=== PATIENT | female | born 1980 | race Two or more races ===

== ENCOUNTER 2019-07-16 11:18 | Emergency (ER) | payer OTHER ==
[~2019-07-16] VITALS: Ht 154.9 cm; Wt 84.8 kg
[~2019-07-16 11:18] MED LIST: NO HOME MEDS
[2019-07-16] MEDS ORDERED: KETOROLAC 30 MG/1 ML ONE (11:52)
[2019-07-16] MEDS ORDERED: KETOROLAC 30 MG/1 ML IVPush ONE (12:00)
[2019-07-16] MEDS ORDERED: SODIUM CHLORIDE 0.9% 1,000ML IVBOLUS ONE (12:00)
[2019-07-16 12:11] LABS: ALBUMIN 3.1 g/dL (3.4-5.0); ANION GAP 8 mmol/L (5-15); CALCIUM 8.4 mg/dL (8.5-10.1); CHLORIDE 109 mmol/L (98-107)
[2019-07-16 12:17] LABS: ALANINE AMINOTRANSFERASE 42 U/L (12-78); ALKALINE PHOSPHATASE 102 U/L (45-117); BILIRUBIN,TOTAL 0.3 mg/dL (0.2-1.0); CREATININE 0.63 mg/dL (0.55-1.02); TOTAL PROTEIN 7.7 g/dL (6.4-8.2)
[2019-07-16 12:20] LABS: BASOPHILS # (AUTO) 0.02 x10^3/uL (0-0.1); BASOPHILS % (AUTO) 0 % (0-1); EOSINOPHILS # (AUTO) 0.09 x10^3/uL (0-0.4); EOSINOPHILS % (AUTO) 1 % (1-7); LYMPHOCYTES # (AUTO) 0.86 x10^3/uL (1-3.4); LYMPHOCYTES % (AUTO) 8 % (22-44); MD SCAN; MEAN CORPUSCULAR HEMOGLOBIN 29.1 pg (27.0-34.8); MEAN CORPUSCULAR HGB CONC 33.1 g/dL (32.4-35.8); MEAN CORPUSCULAR VOLUME 88.1 fL (80-100); MEAN PLATELET VOLUME 8.4 fL (7.4-10.4); MONOCYTES # (AUTO) 0.58 x10^3/uL (0.2-0.8); MONOCYTES % (AUTO) 6 % (2-9); NEUTROPHILS # (AUTO) 8.98 x10^3/uL (1.8-6.8); NEUTROPHILS % (AUTO) 85 % (42-75); PLATELET COUNT 247 x10^3/uL (130-400); RED BLOOD COUNT 4.62 x10^6/uL (3.82-5.3); RED CELL DISTRIBUTION WIDTH 12.4 % (9.6-15.2)
[2019-07-16] MEDS ORDERED: AZITHROMYCIN 500 MG in SODIUM CHLORIDE 0.9% 250 ML IV ONE (12:30)
[2019-07-16] MEDS ORDERED: CEFTRIAXONE PMX 1GM/50ML 50 ML IV ONE (12:30)
[2019-07-16] MEDS ORDERED: CEFTRIAXONE PMX 1GM/50ML 50 ML ONE (12:37)
--- NOTE | 2019-07-16 12:45 | NUR ---
IV STARTED. PT PLACED ON VITALS MONITORS. ORDERED FLUIDS AND MEDS GIVEN. BLOOD CULTURES DRAWN, ORDERED ABX STARTED. WILL CONTINUE TO MONITOR.
[2019-07-16] MEDS ORDERED: ACETAMINOPHEN 500 MG TABLET ONE (13:15)
[2019-07-16] MEDS ORDERED: ACETAMINOPHEN 500 MG TABLET PO ONE (13:30)
[2019-07-16 14:37] LABS: MICROSCOPIC AUTO
[2019-07-16 14:41] LABS: CULTURE INDICATED? YES
[2019-07-16 15:34] VITALS: BP 109/59
== END 2019-07-16 15:36 | disposition home or self-care (01) ==
LOC: ED 11:45
DX: J15.9 Unspecified bacterial pneumonia (principal)
CPT/HCPCS: 36415; 71046; 80053; 81001; 83605; 84703; 85025; 87040; 87086; 96365; 96368; 96375; 99284; J0456; J0696; J1885; J7030; J7050

== ENCOUNTER 2019-07-19 08:58 | Inpatient (IN) | payer OTHER ==
[~2019-07-19] VITALS: Ht 152.4 cm; Wt 85.3 kg
[2019-07-19 10:15] LABS: BASOPHILS # (AUTO) 0.04 x10^3/uL (0-0.1); BASOPHILS % (AUTO) 1 % (0-1); EOSINOPHILS # (AUTO) 0.23 x10^3/uL (0-0.4); EOSINOPHILS % (AUTO) 3 % (1-7); LYMPHOCYTES # (AUTO) 1.27 x10^3/uL (1-3.4); LYMPHOCYTES % (AUTO) 14 % (22-44); MD NO; MEAN CORPUSCULAR HEMOGLOBIN 28.9 pg (27.0-34.8); MEAN CORPUSCULAR HGB CONC 32.7 g/dL (32.4-35.8); MEAN CORPUSCULAR VOLUME 88.2 fL (80-100); MEAN PLATELET VOLUME 7.9 fL (7.4-10.4); MONOCYTES # (AUTO) 0.73 x10^3/uL (0.2-0.8); MONOCYTES % (AUTO) 8 % (2-9); NEUTROPHILS # (AUTO) 7.08 x10^3/uL (1.8-6.8); NEUTROPHILS % (AUTO) 76 % (42-75); PLATELET COUNT 350 x10^3/uL (130-400); RED BLOOD COUNT 4.28 x10^6/uL (3.82-5.3); RED CELL DISTRIBUTION WIDTH 12.6 % (9.6-15.2)
[2019-07-19 10:26] LABS: ALBUMIN 2.8 g/dL (3.4-5.0); ANION GAP 6 mmol/L (5-15); CALCIUM 8.4 mg/dL (8.5-10.1); CHLORIDE 105 mmol/L (98-107); CREATININE 0.57 mg/dL (0.55-1.02)
[2019-07-19] MEDS ORDERED: SODIUM CHLORIDE FLUSH 10ML SYR IVF ONE (11:00)
--- NOTE | 2019-07-19 11:26 | NUR ---
PT TO CT AT THIS TIME
[2019-07-19] MEDS ORDERED: OMNIPAQUE 350 MG/ML, 100ML BOTTLE ONE (11:47)
[2019-07-19] MEDS ORDERED: LEVO25TA4 PO (12:52)
[2019-07-19] MEDS ORDERED: POTASSIUM CHLORIDE 20 MEQ TAB.ER.PRT PO ONE (14:00)
[2019-07-19] MEDS ORDERED: LEVOFLOXACIN/PMX 750MG/150ML 150 ML IV SCH (14:00)
[2019-07-19] MEDS ORDERED: GUAIFENESIN/COD200MG-20MG/10ML LIQUID PO PRN (14:00)
[2019-07-19] MEDS ORDERED: LEVOFLOXACIN/PMX 750MG/150ML 150 ML ONE (14:13)
[2019-07-19] MEDS ORDERED: ENOXAPARIN 40 MG/0.4 ML ONE (14:13)
[2019-07-19] MEDS ORDERED: POTASSIUM CHLORIDE 20 MEQ TAB.ER.PRT ONE (14:13)
[2019-07-19] MEDS: ENOXAPARIN 40 MG/0.4 ML SQ SCH (14:51)
--- NOTE | 2019-07-19 14:58 | NUR ---
[facility] RPT REC'D FROM [facility] AND PT CARE ASSUMED. PT MED NOTED. HUMPHREYS AND STEVEN.
[2019-07-19 15:55] VITALS: BP 116/76
[2019-07-19] MEDS ORDERED: VANCOMYCIN PER PHARMACY MC PRN (18:00)
[2019-07-19] MEDS ORDERED: PHARMACOKINETIC MONITORING MC PRN (18:30)
[2019-07-19] MEDS: VANCOMYCIN 1,600 MG in SODIUM CHLORIDE 0.9% 250 ML IV SCH (18:35)
[2019-07-19 19:05] VITALS: BP 115/82
[2019-07-19] MEDS: OSELTAMIVIR 75 MG CAPSULE PO SCH (20:25)
[2019-07-20 00:33] VITALS: BP 105/62
[2019-07-20] MEDS: VANCOMYCIN 1,600 MG in SODIUM CHLORIDE 0.9% 250 ML IV SCH (06:01)
[2019-07-20 06:24] LABS: BASOPHILS # (AUTO) 0.04 x10^3/uL (0-0.1); BASOPHILS % (AUTO) 1 % (0-1); EOSINOPHILS # (AUTO) 0.18 x10^3/uL (0-0.4); EOSINOPHILS % (AUTO) 2 % (1-7); LYMPHOCYTES # (AUTO) 1.29 x10^3/uL (1-3.4); LYMPHOCYTES % (AUTO) 16 % (22-44); MD NO; MEAN CORPUSCULAR VOLUME 87.7 fL (80-100); MEAN PLATELET VOLUME 7.7 fL (7.4-10.4); MONOCYTES # (AUTO) 0.79 x10^3/uL (0.2-0.8); MONOCYTES % (AUTO) 10 % (2-9); NEUTROPHILS # (AUTO) 5.98 x10^3/uL (1.8-6.8); NEUTROPHILS % (AUTO) 72 % (42-75); PLATELET COUNT 364 x10^3/uL (130-400); RED BLOOD COUNT 4.13 x10^6/uL (3.82-5.3); RED CELL DISTRIBUTION WIDTH 12.8 % (9.6-15.2)
[2019-07-20 06:35] LABS: ALBUMIN 2.8 g/dL (3.4-5.0); ANION GAP 7 mmol/L (5-15); CALCIUM 8.9 mg/dL (8.5-10.1); CHLORIDE 108 mmol/L (98-107)
[2019-07-20 06:41] LABS: ALANINE AMINOTRANSFERASE 33 U/L (12-78); ALKALINE PHOSPHATASE 88 U/L (45-117); BILIRUBIN,TOTAL 0.5 mg/dL (0.2-1.0); CREATININE 0.62 mg/dL (0.55-1.02); TOTAL PROTEIN 7.6 g/dL (6.4-8.2)
[2019-07-20 06:50] VITALS: BP 103/73
[2019-07-20] MEDS: LEVOTHYROXINE 25 MCG TABLET PO SCH (09:51)
[2019-07-20] MEDS: OSELTAMIVIR 75 MG CAPSULE PO SCH ×2 (09:51→20:03)
[2019-07-20] MEDS: CEFTRIAXONE PMX 1GM/50ML 50 ML IV SCH ×2 (09:51→10:27)
[2019-07-20] MEDS: DOXYCYCLINE 100 MG in DEXTROSE 5% 250 ML IV SCH ×3 (09:52→20:01)
[2019-07-20] MEDS: GUAIFENESIN 200 MG TABLET PO SCH ×4 (09:54→20:03)
[2019-07-20 13:25] VITALS: BP 107/75
[2019-07-20] MEDS: ENOXAPARIN 40 MG/0.4 ML SQ SCH (14:43)
[2019-07-20 18:33] VITALS: BP 108/74
[2019-07-21 01:11] VITALS: BP 111/77
[2019-07-21] MEDS: GUAIFENESIN/DM 200-20MG, 10ML UDC PO PRN ×3 (02:00→14:48)
[2019-07-21] MEDS: GUAIFENESIN 200 MG TABLET PO SCH ×4 (05:29→20:40)
[2019-07-21 06:47] VITALS: BP 117/81
[2019-07-21] MEDS: OSELTAMIVIR 75 MG CAPSULE PO SCH ×2 (08:15→20:40)
[2019-07-21] MEDS: LEVOTHYROXINE 25 MCG TABLET PO SCH (08:15)
[2019-07-21] MEDS: DOXYCYCLINE 100 MG in DEXTROSE 5% 250 ML IV SCH ×2 (08:15→22:49)
[2019-07-21] MEDS: CEFTRIAXONE PMX 1GM/50ML 50 ML IV SCH ×2 (11:00→12:38)
[2019-07-21 13:46] VITALS: BP 113/80
[2019-07-21] MEDS: ENOXAPARIN 40 MG/0.4 ML SQ SCH (14:37)
[2019-07-21 18:39] VITALS: BP 101/73
[2019-07-22 01:09] VITALS: BP 108/75
[2019-07-22] MEDS: GUAIFENESIN 200 MG TABLET PO SCH ×2 (06:03→09:30)
[2019-07-22] MEDS ORDERED: AMOXICILLIN/CLAV 875-125MG TABLET PO SCH (09:00)
[2019-07-22] MEDS ORDERED: DOXYCYCLINE 100MG TABLET PO SCH (09:00)
[2019-07-22 09:20] VITALS: BP 108/78
[2019-07-22] MEDS: GUAIFENESIN/DM 200-20MG, 10ML UDC PO PRN (09:29)
[2019-07-22] MEDS: LEVOTHYROXINE 25 MCG TABLET PO SCH (09:30)
[2019-07-22] MEDS: OSELTAMIVIR 75 MG CAPSULE PO SCH (09:30)
[2019-07-22] MEDS ORDERED: AMOX1TAB12 PO (10:05)
[2019-07-22] MEDS ORDERED: DOXY100T PO (10:05)
[2019-07-22] MEDS ORDERED: OSEL75CA14 PO (10:05)
[2019-07-22] MEDS ORDERED: GUAI200T37 PO (10:05)
== END 2019-07-22 15:21 | disposition home or self-care (01) | DRG 195 ==
LOC: ED 10:12 → EDIP 12:24 → 3N 16:00
PROVIDERS: ADMIT Internal Medicine; ATTEND Internal Medicine
DX: J18.1 Lobar pneumonia, unspecified organism (principal); E03.9 Hypothyroidism, unspecified; E87.6 Hypokalemia
CPT/HCPCS: 36415; 70490; 71045; 71275; 80048; 80053; 82040; 84443; 85025; 85379; 87040; 87070; 87205; 96374; G0378; J0696; J1650; J1956; J3370; J7060; Q9967; J7050

== ENCOUNTER → 2021-01-18 | Outpatient (CLI) | payer OTHER ==
[~2021-01-18] MED LIST changes: +AMOX1TAB12 PO; +DOXY100T PO; +GUAI200T37 PO; +LEVO137T3 PO; +LEVO25TA4 PO; +OSEL75CA14 PO
[2021-01-18 16:15] LABS: BASOPHILS % (AUTO) 1 % (0-1); EOSINOPHILS % (AUTO) 3 % (1-7); LYMPHOCYTES % (AUTO) 37 % (22-44); MEAN CORPUSCULAR HEMOGLOBIN 27.7 pg (27.0-34.8); MEAN CORPUSCULAR HGB CONC 33.4 g/dL (32.4-35.8); MEAN PLATELET VOLUME 7.7 fL (7.4-10.4); MONOCYTES % (AUTO) 10 % (2-9); NEUTROPHILS % (AUTO) 49 % (42-75); PLATELET COUNT 304 x10^3/uL (130-400); RED BLOOD COUNT 3.77 x10^6/uL (3.82-5.3); RED CELL DISTRIBUTION WIDTH 14.8 % (9.6-15.2)
[2021-01-18 16:27] LABS: ALANINE AMINOTRANSFERASE 23 U/L (12-78); ALBUMIN 3.5 g/dL (3.4-5.0); ANION GAP 5 mmol/L (5-15); CALCIUM 8.4 mg/dL (8.5-10.1); CHLORIDE 112 mmol/L (98-107); CREATININE 0.65 mg/dL (0.55-1.02)
[2021-01-18 16:32] LABS: ALKALINE PHOSPHATASE 76 U/L (45-117); BILIRUBIN,TOTAL 0.2 mg/dL (0.2-1.0); TOTAL PROTEIN 7.2 g/dL (6.4-8.2)
== END | disposition home or self-care (01) ==
LOC: STAR 15:23
PROVIDERS: ATTEND Obstetrics & Gynecology
DX: Z01.818 Encounter for other preprocedural examination (principal); N92.1 Excessive and frequent menstruation with irregular cycle; N93.9 Abnormal uterine and vaginal bleeding, unspecified; R93.89 Abnormal findings on diagnostic imaging of other specified body structures; N85.00 Endometrial hyperplasia, unspecified; I51.7 Cardiomegaly; R94.31 Abnormal electrocardiogram [ECG] [EKG]
CPT/HCPCS: 36415; 80053; 84703; 85025; 93005

== ENCOUNTER 2021-01-24 15:00 | Inpatient (IN) | payer OTHER ==
[~2021-01-24] VITALS: Ht 152.4 cm; Wt 96.5 kg
[2021-01-24 13:59] LABS: HCG UR SG 1.022 (1.003-1.030)
[~2021-01-24 15:00] MED LIST changes: +ACETAMINOPHEN 325 MG TABLET PO PRN; +CHLORHEXIDINE 15 ML UDC ONE; +CHLORHEXIDINE 15 ML UDC PO ONE; +DEXAMETHASONE 4 MG/ML, 1ML ONE; +EPHEDRINE 50 MG/ML, 1ML IVPush PRN; +FENTANYL PF 250 MCG/5ML ONE; +HYDROmorphone 1 MG/ML, 1ML INJ IVPush PRN; +LABETALOL 5MG/ML, 20ML IV PRN; +LACTATED RINGERS 1,000 ML IV SCH; +LIDOCAINE-MPF 2% ,5ML ONE; +MEPERIDINE/PF 25MG/0.5ML IVPush PRN; +MIDAZOLAM 1 MG/ML, 2ML ONE; +ONDANSETRON 2MG/ML, 2ML IVPush PRN; +OXYcodone 5 MG/5 ML ORAL.SOL UDC PO PRN; +PROMETHAZINE 25 MG/ML, 1ML IVPush PRN; +SODIUM CHLORIDE 0.9% PF 10ML ONE; +hydrALAzine 20 MG/ML, 1ML IV PRN
[2021-01-24] MEDS ORDERED: FLUORESCEIN SODIUM 500 MG/5 ML ONE (16:27)
[2021-01-24] MEDS ORDERED: ONDANSETRON 2MG/ML, 2ML ONE (17:09)
[2021-01-24] MEDS ORDERED: GLYCOPYRROLATE 0.2MG/1ML, 5ML ONE (17:09)
[2021-01-24] MEDS ORDERED: PROPOFOL 10 MG/ML, 20ML ONE (17:09)
[2021-01-24] MEDS ORDERED: NEOSTIGMINE 1 MG/ML, 10ML ONE (17:09)
[2021-01-24] MEDS ORDERED: DEXAMETHASONE 4 MG/ML, 1ML ONE (17:09)
[2021-01-24] MEDS ORDERED: SUCCINYLCHOLINE 20 MG/ML, 10ML ONE (17:09)
[2021-01-24] MEDS ORDERED: ROCURONIUM 10MG/ML,5ML ONE (17:09)
[2021-01-24] MEDS ORDERED: CEFAZOLIN 1,000 MG ONE (17:09)
[2021-01-24] MEDS ORDERED: KETOROLAC 30 MG/1 ML ONE ×2 (17:10)
[2021-01-24] MEDS ORDERED: PROPOFOL 50 ML ONE ×2 (17:40→18:36)
[2021-01-24] MEDS ORDERED: OXYcodone 5 MG/5 ML ORAL.SOL UDC ONE (19:36)
[2021-01-24] MEDS ORDERED: FENTANYL PF 100 MCG/2ML ONE (19:36)
[2021-01-24] MEDS: FENTANYL PF 100 MCG/2ML IV PRN ×2 (19:49→19:55)
[2021-01-24] MEDS ORDERED: KETOROLAC 30 MG/1 ML IV PRN (21:00)
[2021-01-24] MEDS ORDERED: ONDANSETRON 2MG/ML, 2ML IV PRN (21:00)
[2021-01-24] MEDS ORDERED: MEPERIDINE/PF 100 MG/ML IM PRN (21:00)
[2021-01-24] MEDS ORDERED: SENNA/DOCUSATE TABLET PO SCH (21:00)
[2021-01-24] MEDS ORDERED: ACETAMINOPHEN 650 MG SUPP PR PRN ×2 (21:00)
[2021-01-24] MEDS ORDERED: ACETAMINOPHEN 325 MG TABLET PO PRN ×2 (21:00)
[2021-01-24] MEDS ORDERED: ZOLPIDEM 5MG TABLET PO PRN (21:00)
[2021-01-24] MEDS: morphine SULFATE 10 MG/ML, 1ML IV PRN ×4 (21:39→22:52)
[2021-01-24] MEDS: IBUPROFEN 600 MG TABLET PO SCH (21:40)
[2021-01-24] MEDS: SIMETHICONE 80 MG CHEW TAB PO SCH (21:41)
[2021-01-25] VITALS (7 sets, daily range): BP systolic 88–151; BP diastolic 51–74
[2021-01-25] MEDS: OXYcodone/APAP 5/325MG TABLET PO PRN ×2 (02:01→05:31)
[2021-01-25] MEDS: D5%-LACTATED RINGERS 1,000 ML IV SCH ×3 (03:20→19:00)
[2021-01-25 03:42] LABS: BASOPHILS % (AUTO) 0 % (0-1); EOSINOPHILS % (AUTO) 0 % (1-7); LYMPHOCYTES % (AUTO) 8 % (22-44); MEAN CORPUSCULAR HEMOGLOBIN 26.6 pg (27.0-34.8); MEAN CORPUSCULAR HGB CONC 32.8 g/dL (32.4-35.8); MEAN PLATELET VOLUME 8.5 fL (7.4-10.4); MONOCYTES % (AUTO) 2 % (2-9); NEUTROPHILS % (AUTO) 89 % (42-75); PLATELET COUNT 284 x10^3/uL (130-400); RED BLOOD COUNT 3.67 x10^6/uL (3.82-5.3); RED CELL DISTRIBUTION WIDTH 15.7 % (9.6-15.2)
[2021-01-25 03:54] LABS: ANION GAP 6 mmol/L (5-15); CALCIUM 8.5 mg/dL (8.5-10.1); CHLORIDE 109 mmol/L (98-107); CREATININE 0.58 mg/dL (0.55-1.02)
[2021-01-25] MEDS: LEVOTHYROXINE 137 MCG TABLET PO SCH (05:31)
[2021-01-25] MEDS: IBUPROFEN 600 MG TABLET PO SCH ×4 (05:31→23:46)
[2021-01-25] MEDS: SIMETHICONE 80 MG CHEW TAB PO SCH ×3 (11:07→23:46)
[2021-01-25 21:22] LABS: BASOPHILS % (AUTO) 1 % (0-1); EOSINOPHILS % (AUTO) 6 % (1-7); LYMPHOCYTES % (AUTO) 18 % (22-44); MEAN CORPUSCULAR HEMOGLOBIN 26.8 pg (27.0-34.8); MEAN CORPUSCULAR HGB CONC 33.1 g/dL (32.4-35.8); MEAN PLATELET VOLUME 8.9 fL (7.4-10.4); MONOCYTES % (AUTO) 8 % (2-9); NEUTROPHILS % (AUTO) 68 % (42-75); PLATELET COUNT 87 x10^3/uL (130-400); RED BLOOD COUNT 3.22 x10^6/uL (3.82-5.3); RED CELL DISTRIBUTION WIDTH 15.9 % (9.6-15.2)
[2021-01-26 01:55] VITALS: BP 89/63
[2021-01-26] MEDS: D5%-LACTATED RINGERS 1,000 ML IV SCH ×2 (03:00→10:42)
[2021-01-26] MEDS: LEVOTHYROXINE 137 MCG TABLET PO SCH (07:26)
[2021-01-26] MEDS: IBUPROFEN 600 MG TABLET PO SCH ×2 (07:26→11:32)
[2021-01-26 09:07] VITALS: BP 99/67
[2021-01-26] MEDS: SIMETHICONE 80 MG CHEW TAB PO SCH (09:50)
[2021-01-26 10:40] LABS: BASOPHILS % (AUTO) 1 % (0-1); EOSINOPHILS % (AUTO) 1 % (1-7); LYMPHOCYTES % (AUTO) 25 % (22-44); MEAN CORPUSCULAR HEMOGLOBIN 26.8 pg (27.0-34.8); MEAN CORPUSCULAR HGB CONC 32.7 g/dL (32.4-35.8); MEAN PLATELET VOLUME 7.9 fL (7.4-10.4); MONOCYTES % (AUTO) 9 % (2-9); NEUTROPHILS % (AUTO) 65 % (42-75); PLATELET COUNT 265 x10^3/uL (130-400); RED BLOOD COUNT 3.42 x10^6/uL (3.82-5.3); RED CELL DISTRIBUTION WIDTH 16.2 % (9.6-15.2)
[2021-01-26] MEDS ORDERED: DOCU-131 PO (10:55)
[2021-01-26] MEDS ORDERED: OXYC1TAB14 PO (10:55)
[2021-01-26 11:40] VITALS: BP 91/61
== END 2021-01-26 12:40 | disposition home or self-care (01) | DRG 743 ==
LOC: 4NE 20:36
PROVIDERS: ADMIT Obstetrics & Gynecology; ATTEND Obstetrics & Gynecology
PROC: 0UT70ZZ Resection of Bilateral Fallopian Tubes, Open Approach (ICD-10-PCS; 2021-01-24)
PROC: 0UT90ZZ Resection of Uterus, Open Approach (ICD-10-PCS; principal; 2021-01-24 15:00)
DX: N92.1 Excessive and frequent menstruation with irregular cycle (principal); N93.9 Abnormal uterine and vaginal bleeding, unspecified; N85.00 Endometrial hyperplasia, unspecified; N85.01 Benign endometrial hyperplasia; N85.4 Malposition of uterus; N92.0 Excessive and frequent menstruation with regular cycle
CPT/HCPCS: 36415; J3490; J7121; 80048; 81025; 85025; 86850; 86900; 88307; G0378; J0690; J1100; J1885; J2250; J2405; J2704; J2710; J3010; J0330; J2175; J2270; J7120

== ENCOUNTER 2021-03-06 09:34 | Outpatient (CLI) | payer OTHER ==
[~2021-03-06 09:34] MED LIST changes: -ACETAMINOPHEN 325 MG TABLET PO PRN; -CHLORHEXIDINE 15 ML UDC ONE; -CHLORHEXIDINE 15 ML UDC PO ONE; -DEXAMETHASONE 4 MG/ML, 1ML ONE; +DOCU-131 PO; -EPHEDRINE 50 MG/ML, 1ML IVPush PRN; -FENTANYL PF 250 MCG/5ML ONE; -HYDROmorphone 1 MG/ML, 1ML INJ IVPush PRN; -LABETALOL 5MG/ML, 20ML IV PRN; -LACTATED RINGERS 1,000 ML IV SCH; -LIDOCAINE-MPF 2% ,5ML ONE; -MEPERIDINE/PF 25MG/0.5ML IVPush PRN; -MIDAZOLAM 1 MG/ML, 2ML ONE; -ONDANSETRON 2MG/ML, 2ML IVPush PRN; +OXYC1TAB12 PO; -OXYcodone 5 MG/5 ML ORAL.SOL UDC PO PRN; -PROMETHAZINE 25 MG/ML, 1ML IVPush PRN; -SODIUM CHLORIDE 0.9% PF 10ML ONE; -hydrALAzine 20 MG/ML, 1ML IV PRN
[2021-03-06 10:40] LABS: BASOPHILS % (AUTO) 1 % (0-1); EOSINOPHILS % (AUTO) 2 % (1-7); LYMPHOCYTES % (AUTO) 29 % (22-44); MEAN CORPUSCULAR HEMOGLOBIN 25.9 pg (27.0-34.8); MEAN CORPUSCULAR HGB CONC 32.2 g/dL (32.4-35.8); MEAN PLATELET VOLUME 7.8 fL (7.4-10.4); MONOCYTES % (AUTO) 7 % (2-9); NEUTROPHILS % (AUTO) 62 % (42-75); PLATELET COUNT 282 x10^3/uL (130-400); RED BLOOD COUNT 5.09 x10^6/uL (3.82-5.3); RED CELL DISTRIBUTION WIDTH 19.8 % (9.6-15.2)
[2021-03-06 10:52] LABS: INTERNATIONAL NORMALIZED RATIO 1.01 (0.93-1.1); PROTHROMBIN TIME 10.8 Seconds (9.6-11.5)
[2021-03-06 10:54] LABS: ALBUMIN 3.6 g/dL (3.4-5.0); ANION GAP 5 mmol/L (5-15); CALCIUM 9.2 mg/dL (8.5-10.1); CHLORIDE 110 mmol/L (98-107)
[2021-03-06 10:58] LABS: ALANINE AMINOTRANSFERASE 24 U/L (12-78); ALKALINE PHOSPHATASE 86 U/L (45-117); BILIRUBIN,TOTAL 0.3 mg/dL (0.2-1.0); CREATININE 0.65 mg/dL (0.55-1.02); TOTAL PROTEIN 7.6 g/dL (6.4-8.2)
== END 2021-03-06 23:59 | disposition home or self-care (01) ==
LOC: STAR 09:34
PROVIDERS: ATTEND Specialist
DX: Z01.818 Encounter for other preprocedural examination (principal); C55 Malignant neoplasm of uterus, part unspecified
CPT/HCPCS: 36415; 80053; 85025; 85610; 85730

== ENCOUNTER 2021-03-12 07:06 | Day surgery (SDC) | payer OTHER ==
[~2021-03-12] VITALS: Ht 152.4 cm; Wt 90.8 kg
[2021-03-12 07:34] VITALS: BP 125/89
[2021-03-12] MEDS ORDERED: LACTATED RINGERS 1,000 ML IV SCH (08:00)
[2021-03-12] MEDS ORDERED: CHLORHEXIDINE 15 ML UDC PO ONE (08:00)
[2021-03-12] MEDS ORDERED: CEFOTETAN 2 GM in DEXTROSE 5% 50 ML IVPB ONE (08:00)
[2021-03-12] MEDS ORDERED: BUPIVACAINE/PF 0.25% ONE (09:37)
[2021-03-12] MEDS ORDERED: PROPOFOL 10 MG/ML, 20ML ONE (09:50)
[2021-03-12] MEDS ORDERED: LIDOCAINE-MPF 2% ,5ML ONE (09:52)
[2021-03-12] MEDS ORDERED: SUCCINYLCHOLINE 20 MG/ML, 10ML ONE (09:52)
[2021-03-12] MEDS ORDERED: DEXAMETHASONE 4 MG/ML, 1ML ONE (10:34)
[2021-03-12] MEDS ORDERED: ONDANSETRON 2MG/ML, 2ML ONE (10:34)
[2021-03-12] MEDS ORDERED: ROCURONIUM 10MG/ML,5ML ONE (10:43)
[2021-03-12] MEDS ORDERED: GLYCOPYRROLATE 0.2MG/1ML, 5ML ONE (11:12)
[2021-03-12] MEDS ORDERED: NEOSTIGMINE 1 MG/ML, 10ML ONE (11:12)
[2021-03-12] MEDS ORDERED: FENTANYL PF 100 MCG/2ML ONE ×2 (11:12→11:51)
[2021-03-12] MEDS ORDERED: HYDROcodone/APAP 7.5-325MG/15ML UDC ONE (11:51)
[2021-03-12] MEDS: HYDROcodone/APAP 7.5-325MG/15ML UDC PO PRN ×2 (11:53→13:18)
[2021-03-12] MEDS ORDERED: KETOROLAC 30 MG/1 ML IV PRN (12:00)
[2021-03-12] MEDS ORDERED: FENTANYL PF 100 MCG/2ML IV PRN (12:00)
[2021-03-12] MEDS ORDERED: PROMETHAZINE 25 MG/ML, 1ML IVPush PRN (12:00)
[2021-03-12] MEDS ORDERED: KETOROLAC 30 MG/1 ML ONE (12:15)
== END 2021-03-12 14:10 | disposition home or self-care (01) ==
LOC: OUT 07:06
PROVIDERS: ATTEND Specialist
DX: C54.1 Malignant neoplasm of endometrium (principal); N73.6 Female pelvic peritoneal adhesions (postinfective); E03.9 Hypothyroidism, unspecified; Z79.1 Long term (current) use of non-steroidal anti-inflammatories (NSAID); Z79.899 Other long term (current) drug therapy; Z90.710 Acquired absence of both cervix and uterus; Z90.79 Acquired absence of other genital organ(s); Z90.5 Acquired absence of kidney
CPT/HCPCS: 36415; 58661; 74018; 86850; 86900; 88305; J0330; J1100; J1885; J2405; J2704; J2710; J3010; J7120